=== PATIENT | female | born 1980 | race Caucasian/White ===

== ENCOUNTER 2023-08-04 18:49 | Emergency (ER) | payer OTHER, SELFPAY ==
[2023-08-04 18:54] VITALS: BP 136/93
[2023-08-04 19:29] VITALS: BMI 24.7
[2023-08-04 19:44] VITALS: BP 143/82
[2023-08-04 20:09] LABS: % Basophils 0.7 % (0-2); % Eosinophils 1.2 % (0-6); % Immature Granulocytes 0.2 % (0-0.5); % Lymphocytes 37.1 % (20.5-51.1); % Neutrophils 53.8 % (42.2-75.2); Absolute Basophils 0.1 10^3/uL (0-0.2); Absolute Eosinophils 0.1 10^3/uL (0-0.7); Absolute Lymphocytes 3.2 10^3/uL (1.2-3.4); Absolute Monocytes 0.6 10^3/uL (0.1-0.6); Absolute Neutrophils 4.6 10^3/uL (1.4-6.5); Hematocrit 38.2 % (37.0-47.0); Hemoglobin 13.5 g/dL (12.0-16.0); Mean Corp Hgb Conc. 35.3 g/dL (33.0-37.0); Mean Corpuscular Hgb 32.5 pg (27.0-31.0); Mean Platelet Volume 9.3 fL (7.4-10.4); Nucleated Red Blood Cells % 0 %; Platelet Count 325 10^3/uL (130-400); Red Blood Cell Count 4.15 10^6/uL (4.20-5.40); Red Cell Dist. Width 13.5 % (11.5-14.5); White Blood Cell Count 8.5 10^3/uL (4.8-10.8)
[2023-08-04 20:17] LABS: ALT (SGPT) 13 U/L (0-35); AST (SGOT) 20 U/L (14-36); Albumin 4.4 g/dl (3.5-5.0); Alkaline Phosphatase 80 U/L (38-126); Blood Urea Nitrogen 9 mg/dl (7-17); Calcium 9.7 mg/dl (8.4-10.2); Carbon Dioxide 24 mmol/L (22-30); Chloride 105 mmol/L (98-107); Estimated Creatinine Clearance 95 ml/min; Glucose 91 mg/dl (70-99); Potassium 4.2 mmol/L (3.5-5.1); Sodium 138 mmol/L (135-145); Total Bilirubin 0.7 mg/dl (0.2-1.3); Total Protein 7.1 g/dl (6.3-8.2); eGFR > 60.00
--- NOTE | 2023-08-04 20:37 | ED.GENMED ---
History of Present Illness
General
Chief Complaint: Dizziness
Time Seen by Provider: 08/04/23 20:36
Travel History
Have you had any contact with someone who has COVID-19?: No
Do you have any symptoms of coronavirus? Fever > 100 degrees, chills, cough, shortness of breath, sore throat, loss of taste or smell, muscle aches, or headache?: No
History of Present Illness
History of Present Illness:
HPI: The patient presents due to dizziness ongoing for the past several days. She went to see her primary care doctor who put her on antibiotics for the possibility of sinusitis. She had been taking Motrin and Tylenol, headache is somewhat
improved but dizziness persists. She said she had some facial discomfort earlier in the week. She had no rhinorrhea or congestion. She had no fevers. The headache is associated with photophobia but has no significant nausea.
EXAM:
GENERAL: Well appearing in no distress
HEENT: Moist oral mucosa, no significant maxillary sinus tenderness
CARDIOVASCULAR: No murmurs, normal heart rate, regular rhythm, No chest wall tenderness
PULMONARY: No respiratory distress, breath sounds are clear and equal
ABDOMEN: Soft with no peritoneal signs, no tenderness
NEUROLOGIC: Excellent strength all extremities, no coordination deficits, normal finger-nose testing
PSYCHIATRIC: Appropriate mental status, normal insight and judgement
EXTREMITIES: Nontender, no edema, moves all extremities equally
SKIN: No rash, no lesions
TIME OF INITIAL ENCOUNTER: 9:25 PM
NUMBER AND COMPLEXITY OF PROBLEMS ADDRESSED AT THE ENCOUNTER
� Chronic conditions affecting care: History of Venu's thyroiditis but otherwise fairly healthy
� Acute Exacerbation and/or Progression of Chronic Illness: This is an acute problem
� Differential Diagnosis includes: Positional vertigo, migraine type headache, viral syndrome, doubt bacterial sinusitis
AMOUNT AND/OR COMPLEXITY OF DATA TO BE REVIEWED AND ANALYZED
� I performed an independent evaluation of and my interpretation is:
EKG:
CT:
X-rays:
Laboratory Studies: CBC and chemistries unremarkable, TSH normal
Other:
� Review of other/old records: The patient had unremarkable brain MRI in 2009
� Clinical information was obtained by an independent historian: I spoke to friend at bedside
� Prescriptions/Medications Considered but not given:
� Further testing considered but not performed: Considered CT of the brain however the patient has no focal findings on neurologic examination, NIHSS equals 0 and GCS 15
RISK OF COMPLICATIONS AND/OR MORBIDITY OR MORTALITY OF PATIENT MANAGEMENT
� Social determinants of health affecting care: Lives at home
� Discussion with other providers:
� Escalation of care including admission/observation vs risk of discharge considered: I favor more of a inner ear pathology/labyrinthitis/positional vertigo. Doubt bacterial sinusitis. Labs are unremarkable. She does have
headache with photophobia�which she has had headache in the past but never diagnosed as migraine. Will give migraine meds including Reglan/Benadryl along with Toradol. Also give IV fluids. The patient appears very comfortable on reassessment at
10:15 PM.
Past History
Past History
ED Past Medical History: HTN and Other (Venu's thyroiditis)
ED Past Surgical History:
Social History
Tobacco: Smoker
Alcohol: None
Drug: None
Personal: Single
Living: with family
Employment: Employed
Family History
Family History: Other
Phy Exam
Physical Exam
Physical Exam:
See HPI
Course
Orders/Labs/Results
Orders:
Orders
08/04/23 19:46
CMP [Comprehensive Metabolic Panel] Urgent
Complete Blood Count/With Diff Urgent
08/04/23 20:37
Add On- LAB Urgent
Tests Added?: tsh reflex ft4
08/04/23 20:51
TSH Reflex To Free T4 Urgent
08/04/23 21:27
0.9% Sodium Chloride 1000 ml [Nss] 1,000 ml IV BOLUS
Diphenhydramine [Benadryl] 25 mg IV NOW STA
Ketorolac [Toradol] 15 mg IV NOW STA
Metoclopramide [Reglan] 10 mg IV NOW STA
Abnormal Lab Results
08/04/23
19:46
RBC 4.15 L 10^6/uL
(4.20-5.40)
MCH 32.5 H pg
(27.0-31.0)
Creatinine 0.5 L mg/dL
(0.6-1.0)
08/04/23 19:46
08/04/23 19:46
Vital Signs
Initial and Last Documented VS:
Initial Vital Signs
Temp Pulse Resp BP Pulse Ox
99.3 F 89 18 136/93 98
08/04/23 18:54 08/04/23 18:54 08/04/23 18:54 08/04/23 18:54 08/04/23 18:54
Last Documented Vital Signs
Temp Pulse Resp BP Pulse Ox
99.3 F 89 18 136/93 98
08/04/23 18:54 08/04/23 18:54 08/04/23 18:54 08/04/23 18:54 08/04/23 18:54
*Critical Care Note
Total Time (30-74mins, 75-104mins- exclusive of procedures): Not Applicable
ED Attending Note
-
Portions of this chart may have been created with voice recognition software.� Occasional wrong word or��sound alike� substitutions may have occurred due to the inherent limitations of voice recognition software.
Discharge Plan
Departure
Patient Disposition: Home (Routine Discharge)
Date of Disposition: 08/04/23
Time of Disposition: 22:12
Patient with high blood pressure during this ER visit?: Yes
Discharge Problem:
Positional vertigo
Instructions: Vertigo (a Type of Dizziness) (DC)
Prescriptions:
No Action
Synthroid
100 mcg PO DAILY
cyanocobalamin (vitamin B-12) 1,000 MCG/1 ML solution
1,000 mcg IJ .BI-WEEKLY
cholecalciferol (vitamin D3) 5,000 UNIT tablet
5,000 unit PO DAILY
hydrocodone-acetaminophen [Vicodin] 1 EACH tablet
1 ea PO Q4 PRN (Reason: pain) Qty: 8 0RF
Referrals:
Rayna Esquivel, DO [Family Provider] -
Activity Restrictions/Additional Instructions:
I suspect that your symptoms are related to positional vertigo. However since he had associated headache we gave you migraine type of medications which include Reglan. I gave Benadryl along with the Reglan to help prevent side effects and Benadryl
can be used to help with dizziness as well. We also gave IV fluids. Basic blood work was normal including normal thyroid testing. I recommend that you call [phone] for vestibular physical therapy. Return here if worse.
Interventions
Interventions:
*Risk Screen - Suicide Last Done: 08/04/23 19:30
*General Assessment Last Done: 08/04/23 19:30
*Neglect/Abuse Screening Last Done: 08/04/23 19:30
*ED COVID-19 Vaccine History Last Done: 08/04/23 19:30
ED- Neurological Assessment Last Done: 08/04/23 19:45
ED Swallowing Screen Last Done: 08/04/23 19:45
Discharge Date and Time
Print Language: CZECH
[2023-08-04] MEDS: NSS 1000 IV (21:32)
[2023-08-04] MEDS: BENADRYL 25 MG IV (21:32)
[2023-08-04] MEDS: TORADOL 15 MG IV (21:33)
[2023-08-04] MEDS: REGLAN 10 MG IV (21:33)
[2023-08-04 22:24] VITALS: BP 119/92
== END 2023-08-04 22:46 | disposition home or self-care (01) ==
LOC: EMR 18:49
PROVIDERS: EMERGENCY PHYSICIAN Emergency Medicine; FAMILY PHYSICIAN Family Medicine
DX: R42 Dizziness and giddiness (principal)
CPT/HCPCS: 99283; 96374; 96375; 96361; 80053; 84443; 85025

== ENCOUNTER → 2023-08-12 08:40 | Outpatient (REF) | payer OTHER, SELFPAY | LOC: MRI 08:40 | PROVIDERS: ATTENDING PHYSICIAN Nurse Practitioner Family | DX: R42 Dizziness and giddiness (principal) | CPT/HCPCS: 70553; A9575 ==

== ENCOUNTER → 2023-10-09 16:02 | Outpatient (REF) | payer OTHER, SELFPAY | LOC: HWWDC 16:02 | PROVIDERS: ATTENDING PHYSICIAN Surgery; FAMILY PHYSICIAN Nurse Practitioner Family | DX: Z12.31 Encounter for screening mammogram for malignant neoplasm of breast (principal) | CPT/HCPCS: 77063; 77067 ==

== ENCOUNTER → 2023-10-17 08:47 | Outpatient (REF) | payer OTHER, SELFPAY | LOC: WDC 08:47 | PROVIDERS: ATTENDING PHYSICIAN Surgery; FAMILY PHYSICIAN Nurse Practitioner Family | DX: R92.8 Other abnormal and inconclusive findings on diagnostic imaging of breast (principal) | CPT/HCPCS: 76642 ==

== ENCOUNTER → 2024-06-27 08:27 | Outpatient (REF) | payer OTHER, SELFPAY | LOC: RAD 08:27 | PROVIDERS: ATTENDING PHYSICIAN Nurse Practitioner Family | DX: R05.1 Acute cough (principal) | CPT/HCPCS: 71046 ==

== ENCOUNTER → 2024-08-11 13:47 | Outpatient (REF) | payer OTHER, SELFPAY | LOC: WDC 13:47 | PROVIDERS: ATTENDING PHYSICIAN Surgery; FAMILY PHYSICIAN Nurse Practitioner Family | DX: R92.2 Inconclusive mammogram (principal); Z91.89 Other specified personal risk factors, not elsewhere classified | CPT/HCPCS: 76641 ==

== ENCOUNTER 2024-08-25 06:19 | Day surgery (SDC) | payer OTHER, SELFPAY | END 2024-08-25 11:29 | disposition home or self-care (01) | LOC: GI 06:19 | PROVIDERS: ATTENDING PHYSICIAN Specialist | DX: Z12.11 Encounter for screening for malignant neoplasm of colon (principal); D12.3 Benign neoplasm of transverse colon; K57.30 Diverticulosis of large intestine without perforation or abscess without bleeding; R19.7 Diarrhea, unspecified | CPT/HCPCS: 45385; 45380; 88305 ==

== ENCOUNTER 2024-08-31 20:14 | Emergency (ER) | payer OTHER, SELFPAY ==
[2024-08-31 20:16] VITALS: BP 132/85
[2024-08-31 21:04] LABS: ALT (SGPT) 19 U/L (0-35); AST (SGOT) 27 U/L (14-36); Albumin 4.4 g/dl (3.5-5.0); Alkaline Phosphatase 60 U/L (38-126); Blood Urea Nitrogen 10 mg/dl (7-17); Calcium 9.6 mg/dl (8.4-10.2); Carbon Dioxide 22 mmol/L (22-30); Chloride 106 mmol/L (98-107); Glucose 105 mg/dl (70-99); Lipase 85 U/L (23-300); Potassium 4.2 mmol/L (3.5-5.1); Sodium 139 mmol/L (135-145); Total Bilirubin 0.7 mg/dl (0.2-1.3); Total Protein 7.2 g/dl (6.3-8.2); eGFR > 60.00
[2024-08-31 21:09] LABS: % Basophils 0.8 % (0-2); % Eosinophils 3.4 % (0-6); % Immature Granulocytes 0.2 % (0-0.5); % Lymphocytes 39.2 % (20.5-51.1); % Monocytes 7.9 % (1.7-9.3); % Neutrophils 48.5 % (42.2-75.2); Absolute Basophils 0.1 10^3/uL (0-0.2); Absolute Eosinophils 0.3 10^3/uL (0-0.7); Absolute Lymphocytes 3.6 10^3/uL (1.2-3.4); Absolute Monocytes 0.7 10^3/uL (0.1-0.6); Absolute Neutrophils 4.5 10^3/uL (1.4-6.5); Hematocrit 37.3 % (37.0-47.0); Hemoglobin 13.5 g/dL (12.0-16.0); Mean Corp Hgb Conc. 36.2 g/dL (33.0-37.0); Mean Corpuscular Hgb 32.1 pg (27.0-31.0); Mean Corpuscular Volume 88.6 fL (81.0-99.0); Mean Platelet Volume 8.9 fL (7.4-10.4); Nucleated Red Blood Cells % 0 %; Platelet Count 282 10^3/uL (130-400); Red Blood Cell Count 4.21 10^6/uL (4.20-5.40); Red Cell Dist. Width 12.9 % (11.5-14.5); White Blood Cell Count 9.3 10^3/uL (4.8-10.8)
== END 2024-09-01 01:20 ==
LOC: EMR 20:14
PROVIDERS: Student in an Organized Health Care Education/Training Program
DX: R10.84 Generalized abdominal pain (principal); R14.0 Abdominal distension (gaseous); R11.2 Nausea with vomiting, unspecified; R19.7 Diarrhea, unspecified
CPT/HCPCS: 80053; 83690; 85025

== ENCOUNTER 2024-11-18 23:55 | Emergency (ER) | payer OTHER, SELFPAY ==
[2024-11-18 23:58] VITALS: BP 151/110
[2024-11-19 00:18] VITALS: BMI 25.1
--- NOTE | 2024-11-19 00:22 | ED.GENMED ---
History of Present Illness
General
Chief Complaint: Fall
Source: patient and family
Time Seen by Provider: 11/19/24 00:16
History of Present Illness
History of Present Illness:
Note:
CHIEF COMPLAINT(S)
Right ankle pain following a fall.
HISTORY OF PRESENT ILLNESS
The patient is a 43-year-old female who presents with right ankle pain after a fall. She reports tripping over her cat while descending stairs, which led to her landing awkwardly on her right foot. The patient describes the pain primarily on the
medial side of the ankle, noting a sensation that is not numbness but 'feels like a numb feeling.' There is no pain radiating to the knee, and she denies any significant pain in the heel or the fifth metatarsal. The patient has been managing the
pain with ibuprofen prior to arrival.
PHYSICAL EXAM
General: Alert, no acute distress.
Skin: Warm, dry.
Head: Normocephalic, atraumatic.
Neck: Supple, trachea midline.
Eye Ears, nose, mouth and throat: Oral mucosa moist.
Cardiovascular: Normal peripheral perfusion, No edema.
Respiratory: Respirations are non-labored.
Gastrointestinal : Abdomen nondistended
Back: Normal range of motion, Normal alignment.
Musculoskeletal: Normal ROM, normal strength.
Right Ankle Exam: Mild swelling noted in the right ankle. No tenderness through the distal fibula, midfoot, or fifth metatarsal. Negative Rios test. Tenderness specifically over the medial malleolus at the distal tibia and region of the deltoid
ligament medially. Normal distal capillary refill and normal posterior tibial pulses bilaterally. The left lower extremity is unaffected.
Neurological: Alert and oriented to person, place, time, and situation, No focal neurological deficit observed.
Psychiatric: Cooperative, appropriate mood & affect.
PLAN
- Obtain an X-ray of the right ankle to assess for potential fractures, including any avulsion fractures near the deltoid ligament.
- Manage the patient conservatively regardless of X-ray findings due to the extent of pain, treating as if there is a fracture.
- Apply a splint to the affected ankle, provide crutches, and advise the patient to be non-weight bearing.
- Continue taking ibuprofen for pain management and apply ice to reduce swelling.
- Re-evaluate and determine further management based on X-ray results.
DIFFERENTIAL DIAGNOSIS
The Differential Diagnosis includes, in no particular order and is not limited to:
1. Medial ankle sprain
2. Deltoid ligament injury
3. Avulsion fracture of the medial malleolus
4. Ankle fracture
5. Achilles tendon injury
6. Tibial stress fracture
7. Anterior talofibular ligament sprain
8. Posterior tibial tendon dysfunction
9. Osteochondral defect of the talus
10. Fibular (lateral) ankle sprain
Disposition:
SUMMARY OF ENCOUNTER
The patient, a 43-year-old female, presented to the emergency department with right ankle pain following a fall. She reported tripping and landing awkwardly on her right ankle. A physical exam noted mild swelling and tenderness over the medial
malleolus. An ankle x-ray was performed, and I independently reviewed the imaging, finding no acute fracture. A splint was applied, and the patient was provided with crutches since she was unable to bear weight on the affected leg. She was advised
to apply ice and continue with ibuprofen for pain management. An outpatient orthopedic follow-up was recommended.
DISPOSITION
Discharge.
PLAN
- Apply splint and provide crutches to maintain non-weight bearing status.
- Encourage the use of ibuprofen to manage pain and inflammation.
- Advise the application of ice to reduce swelling.
- Arrange for an outpatient follow-up with an orthopedic assistant.
INDEPENDENT REVIEW OF LABS AND INTERPRETATION OF TESTS
My independent interpretation of the right ankle x-ray is no acute fracture.
PATIENT EDUCATION AND COUNSELING
The patient was educated on the importance of keeping the ankle non-weight bearing and using crutches. She was instructed to continue taking ibuprofen and applying ice to manage swelling and pain. An explanation was provided regarding the follow-up
with an orthopedic assistant to ensure proper healing and further evaluation if necessary.
FOLLOW-UP INSTRUCTIONS
The patient was instructed to follow up with an orthopedic assistant.
MEDICATION RECONCILIATION
Ibuprofen was recommended for pain management.
MEDICAL DECISION MAKING
- Number and Complexity of Problems Addressed: Chronic conditions affecting care include a right ankle injury. Differential diagnosis includes medial ankle sprain, deltoid ligament injury, avulsion fracture of the medial malleolus, ankle fracture,
Achilles tendon injury, tibial stress fracture, anterior talofibular ligament sprain, posterior tibial tendon dysfunction, osteochondral defect of the talus, and fibular (lateral) ankle sprain.
- Data:
Category 1:
- My independent interpretation of the right ankle x-ray showed no acute fracture.
- Risk: Consideration of Admission/Observation: Escalation of care including admission/observation was considered given the complexity and risk of the patients presenting complaint and exam findings. However, ultimately I feel the patient is safe
for outpatient management with close follow-up. Reasoning: Work-up reassuring, does not reveal any acute life/organ-threatening processes, patients symptoms well-controlled upon reevaluation, reexamination is reassuring, vitals are stable, patient
agreeable with discharge, reliable for follow-up.
DIAGNOSIS
Medial ankle sprain (ICD-10: S93.411A).
Past History
Past History
ED Past Medical History: HTN and Other (Venu's thyroiditis)
ED Past Surgical History:
Social History
Tobacco: Smoker
Alcohol: None
Drug: None
Personal: Single
Living: with family
Employment: Employed
Family History
Family History: Other
Phy Exam
Physical Exam
Physical Exam:
.
Course
Orders/Labs/Results
Orders:
Orders
11/19/24 00:21
Ankle, Right 3 view CR [CR Ankle - Right Min 3 Views *] Urgent
Comment:
Reason For Exam: fall
11/19/24 00:22
Ibuprofen [Motrin] 600 mg PO NOW STA
11/19/24 01:08
Splints/Slings/Crut- Treatment ONCE
Crutches: Yes
Location: Right
Type of Splint: Short Leg
11/19/24 02:13
Hydrocodone 5/APAP 325 [[place] 5/325] 2 tablet PO NOW STA
Vital Signs
Initial and Last Documented VS:
Initial Vital Signs
Temp Pulse Resp BP Pulse Ox
98.3 F 100 18 151/110 100
11/18/24 23:58 11/18/24 23:58 11/18/24 23:58 11/18/24 23:58 11/18/24 23:58
Last Documented Vital Signs
Temp Pulse Resp BP Pulse Ox
98.3 F 100 18 137/72 98
11/18/24 23:58 11/18/24 23:58 11/18/24 23:58 11/19/24 02:06 11/19/24 02:06
*Pulse Oximetry
SaO2: 100
Oxygen Mode of Delivery: Room air
Patient hypoxic: no
*Critical Care Note
Total Time (30-74mins, 75-104mins- exclusive of procedures): Not Applicable
ED Attending Note
-
Portions of this chart may have been created with voice recognition software.� Occasional wrong word or��sound alike� substitutions may have occurred due to the inherent limitations of voice recognition software.
Discharge Plan
Departure
Patient Disposition: Home (Routine Discharge)
Date of Disposition: 11/19/24
Time of Disposition: 02:03
Patient with high blood pressure during this ER visit?: No
Discharge Problem:
Ankle sprain
Instructions: Ankle sprain - ED discharge instructions
Prescriptions:
No Action
Synthroid
100 mcg PO DAILY
cyanocobalamin (vitamin B-12) 1,000 MCG/1 ML solution
1,000 mcg IJ .BI-WEEKLY
cholecalciferol (vitamin D3) 5,000 UNIT tablet
5,000 unit PO DAILY
hydrocodone-acetaminophen [Vicodin] 1 EACH tablet
1 ea PO Q4 PRN (Reason: pain) Qty: 8 0RF
meclizine 25 mg tablet
25 mg PO BID PRN (Reason: dizziness) Qty: 20 0RF
Referrals:
Tereso Delgado MD [Active, Orthopedics]
Kaleb Manning DPM [Active, Podiatry]
UNKNOWN - PT DOES,NOT KNOW [Family Provider]
Stand Alone Forms: Return to Work
Activity Restrictions/Additional Instructions:
Please rest, elevate and ice your injured ankle. Please see orthopedics in the next 1 to 2 weeks for follow-up and reevaluation. Return immediately for worsening pain, numbness, tingling or any other concerns. Use ibuprofen every 6 hours for pain
and swelling
Interventions
Interventions:
*Risk Screen - Suicide Last Done: 11/18/24 23:58
*General Assessment Last Done: 11/19/24 00:18
*Neglect/Abuse Screening Last Done: 11/18/24 23:58
*ED- Fall Risk Assessment Last Done: 11/19/24 00:18
*ED COVID-19 Vaccine History Last Done: 11/19/24 00:18
ED-Musculoskeletal Assessment Last Done: 11/19/24 00:18
ED- Neurological Assessment Last Done: 11/19/24 00:18
ED-Skin Assessment Last Done: 11/19/24 00:18
Discharge Date and Time
Print Language: COMORAN
[2024-11-19] MEDS: MOTRIN 600 MG PO (00:26)
[2024-11-19 02:06] VITALS: BP 137/72
[2024-11-19] MEDS: NORCO 5/325 2 TABLET PO (02:21)
== END 2024-11-19 02:31 | disposition home or self-care (01) ==
LOC: EMR 23:55
PROVIDERS: EMERGENCY PHYSICIAN Emergency Medicine
DX: S93.401A Sprain of unspecified ligament of right ankle, initial encounter (principal); W10.8XXA Fall (on) (from) other stairs and steps, initial encounter; I10 Essential (primary) hypertension; E06.3 Autoimmune thyroiditis; F17.200 Nicotine dependence, unspecified, uncomplicated
CPT/HCPCS: 99283; 29515; 73610

== ENCOUNTER → 2024-12-01 09:30 | Outpatient (REF) | payer OTHER, SELFPAY | LOC: PAVMRI 09:30 | PROVIDERS: ATTENDING PHYSICIAN Student in an Organized Health Care Education/Training Program; FAMILY PHYSICIAN Nurse Practitioner Family | DX: M25.571 Pain in right ankle and joints of right foot (principal) | CPT/HCPCS: 73721 ==

== ENCOUNTER 2025-02-11 09:24 | Emergency (ER) | payer OTHER, SELFPAY ==
[2025-02-11 09:34] VITALS: BP 173/106
[2025-02-11 11:02] VITALS: BP 131/65
[2025-02-11] MEDS: ROXICODONE 5 MG PO (11:44)
--- NOTE | 2025-02-11 11:45 | ED.GENMED ---
History of Present Illness
General
Chief Complaint: Extremity Pain (non-traumatic)
Source: patient
Time Seen by Provider: 02/11/25 11:10
History of Present Illness
History of Present Illness:
44-year-old female with past medical history of diverticulitis, Venu's thyroiditis, recently fractured right tibia presenting to the emergency department for evaluation of nontraumatic right upper extremity pain described to be initially mild
to moderate, over the last 12 hours more severe and worse with any attempted movement. She did note some mild discomfort across the right chest last night but this has since resolved. No other associated symptoms including shortness of breath,
palpitations, cough, pleurisy, hemoptysis, abdominal pain, nausea, vomiting or any other concerns. Patient has been taking Motrin [id number] because of her fractured ankle as well as was prescribed Valium recently due to the stiffness in the
ankle, was also given a new prescription for a Medrol Dosepak that she was going to start today but has yet to do so. Patient does smoke approximately 1 pack/day. Family history was negative for bleeding or clotting disorder.
Past History
Past History
ED Past Medical History: HTN and Other (Venu's thyroiditis)
ED Past Surgical History:
Social History
Tobacco: Smoker
Alcohol: None
Drug: None
Personal: Single
Living: with family
Employment: Employed
Family History
Family History: Other
Review of Systems
Review of Systems
All Other Systems: ROS reviewed and negative except as documented in HPI and ROS
Phy Exam
Physical Exam
Physical Exam:
GENERAL: Alert , in no apparent distress but does appear uncomfortable
HEAD: Normocephalic atraumatic
EYE: conjunctiva clear
NECK: Supple
ENT: o/p clr, mmm.
CARDIAC: Regular rate and rhythm
LUNGS: Clear breath sounds bilaterally, no acute respiratory distress, no wheezes/rales/rhonchi
NEUROLOGICAL: Alert and oriented
SKIN: Warm and dry, skin intact.
MUSCULOSKELETAL: Right upper extremity: Patient has [address] patches [address] place, there is no obvious deformity, no overlying erythema, ecchymosis, abrasions or lacerations. There is tenderness overlying the lateral aspect of the humeral
head and posterior humeral head, no tenderness over the AC joint. Remainder of extremity is without any focal tenderness. Range of motion severely limited at the shoulder secondary to pain, no pain with range of motion of the elbow, wrist or
digits. Intact and equal radial pulses. Cap refill less than 2. Sensation grossly intact throughout the extremity and equal bilaterally
PSYCH: Normal and appropriate interaction.
Scores
Heart Failure Risk
Heart Failure Risk Score: Not Applicable
Heart Score for Chest Pain Patients
STEMI patient?: Not applicable
Withdrawal Assessment of Alcohol
Withdrawal Assessment Completed?: Not applicable
Course
Orders/Labs/Results
Orders:
Orders
02/11/25 09:36
ECG [Electrocardiogram (*1)] Urgent
Reason for Study: Chest Pain
Other Reason for Exam: R arm pain
EKG- Treatment ONCE
02/11/25 11:24
CR Shoulder - Right Min 2 View Urgent
Reason For Exam: NON TRAUMATIC RT SHOULDER PAIN
Venous Doppler Upr Ext Right [US Periph Venous UPPER Ext RT] Urgent
Comment:
Reason For Exam: pain, smoker, recent immobilization
02/11/25 11:25
Oxycodone [Roxicodone] 5 mg PO NOW STA
02/11/25 12:52
Sling Right-Treatment ONCE
Vital Signs
Initial and Last Documented VS:
Initial Vital Signs
Temp Pulse Resp BP Pulse Ox
97.9 F 90 16 173/106 100
02/11/25 09:34 02/11/25 09:34 02/11/25 09:34 02/11/25 09:34 02/11/25 09:34
Last Documented Vital Signs
Temp Pulse Resp BP Pulse Ox
97.9 F 68 15 154/79 99
02/11/25 09:34 02/11/25 12:45 02/11/25 12:45 02/11/25 12:34 02/11/25 12:45
MDM/Problems Addressed
Differential Diagnosis Includes:
Radiculopathy
Tendinosis
Less concern for fracture or dislocation given lack of trauma
Rotator cuff pathology
Brachial plexus injury
CRPS
DVT
Thoracic outlet syndrome
MDM/Problems Addressed:
44-year-old female presenting to the ER for evaluation of pain to the right shoulder area over the last 2 days, initially tolerable but now to the point where she is unable to range of motion the shoulder secondary to pain. Recent fracture to the
right lower extremity, dealing with lingering pain from this. Pain clearly reproducible with range of motion and palpation. Given risk factors for DVT will obtain an ultrasound although my suspicion for this is lower. X-ray ordered. Oxycodone
ordered for pain control.
*Radiology
Radiology exam reviewed: preliminary read by ED provider (Calcifications over the humeral head) and radiology read reviewed (Negative DVT)
*Pulse Oximetry
SaO2: 99
Oxygen Mode of Delivery: Room air
Patient hypoxic: no
*Critical Care Note
Total Time (30-74mins, 75-104mins- exclusive of procedures): Not Applicable
Patient Management
Escalation/DeEscalation of care consider admission/obs:
Ultrasound negative for any acute pathologies. There are calcifications seen over the humeral head on x-ray. Raising suspicion for calcific tendinosis. Suspect this is the main cause for patient's symptoms. Will place in sling, can use continued
anti-inflammatories as well as the Medrol Dosepak that was prescribed to her and will treat additional pain with oxycodone to be used as needed. Follow-up with orthopedics. Aware of return precautions.
ED Attending Note
-
Portions of this chart may have been created with voice recognition software.� Occasional wrong word or��sound alike� substitutions may have occurred due to the inherent limitations of voice recognition software.
Discharge Plan
Departure
Patient Disposition: Home (Routine Discharge)
Date of Disposition: 02/11/25
Time of Disposition: 12:49
Patient with high blood pressure during this ER visit?: Yes
Discharge Problem:
Acute pain of right shoulder
Instructions: Tendinopathy (DC)
Prescriptions:
New
oxycodone 5 mg tablet
5 mg PO BID PRN (Reason: Pain) Qty: 8 0RF
No Action
Synthroid
100 mcg PO DAILY
cyanocobalamin (vitamin B-12) 1,000 MCG/1 ML solution
1,000 mcg IJ .BI-WEEKLY
cholecalciferol (vitamin D3) 5,000 UNIT tablet
5,000 unit PO DAILY
hydrocodone-acetaminophen [Vicodin] 1 EACH tablet
1 ea PO Q4 PRN (Reason: pain) Qty: 8 0RF
meclizine 25 mg tablet
25 mg PO BID PRN (Reason: dizziness) Qty: 20 0RF
Referrals:
UNKNOWN - PT DOES,NOT KNOW [Family Provider]
Interventions
Interventions:
*Risk Screen - Suicide Last Done: 02/11/25 12:06
*General Assessment Last Done: 02/11/25 12:06
*Neglect/Abuse Screening Last Done: 02/11/25 12:06
*ED- Fall Risk Assessment Last Done: 02/11/25 12:06
*ED COVID-19 Vaccine History Last Done: 02/11/25 12:06
*ED Influenza Vaccine History Last Done: 02/11/25 12:06
*Nursing Disposition Last Done: 02/11/25 13:06
ED-Musculoskeletal Assessment Last Done: 02/11/25 12:06
ED-Peripheral Vascular Assessment Last Done: 02/11/25 12:11
ED-Skin Assessment Last Done: 02/11/25 12:06
Discharge Date and Time
Discharge Date/Time: 02/11/25 13:20
Print Language: [email or web address]
[2025-02-11 12:34] VITALS: BP 154/79
== END 2025-02-11 13:20 | disposition home or self-care (01) ==
LOC: EMR 09:24
PROVIDERS: EMERGENCY PHYSICIAN Emergency Medicine
DX: M25.511 Pain in right shoulder (principal); I10 Essential (primary) hypertension; E06.3 Autoimmune thyroiditis; F17.200 Nicotine dependence, unspecified, uncomplicated
CPT/HCPCS: 99284; 73030; 93005; 93971